=== PATIENT | male | born 1975 | race Caucasian/White ===

== ENCOUNTER 2017-03-17 15:28 | Emergency (ER) | payer SELFPAY ==
[2017-03-17 15:59] VITALS: BP 173/83
[2017-03-17] MEDS ORDERED: OXYCODONE-ACETAMINOPHEN 5-325 MG TABLET PO ONE (16:33)
--- NOTE | 2017-03-17 16:37 | ER Document Report ---
HPI - HPI Patient complains to provider of: Right wrist pain Onset: Other - 2 days Onset/Duration: Persistent Quality of pain: Achy Pain Level: 4 Context: Patient is right-hand dominant and complains of right wrist tenderness. Patient states that he does do a lot of heavy lifting at his job. Patient reports frequent right wrist movements at work. Patient denies any specific injury. Patient denies any fever Associated Symptoms: Other - right wrist pain Exacerbated by: Movement Relieved by: Denies Similar symptoms previously: No Recently seen / treated by doctor: No - ROS ROS below otherwise negative: Yes Systems Reviewed and Negative: Yes All other systems reviewed and negative - NEURO Neurology: DENIES: Weakness - RESPIRATORY Respiratory: DENIES: Trouble Breathing, Coughing - GASTROINTESTINAL Gastrointestinal: DENIES: Nausea, Patient vomiting - REPRODUCTIVE Reproductive: DENIES: : - MUSCULOSKELETAL Musculoskeletal: REPORTS: Extremity pain - r wrist - DERM Skin Color: Normal Skin Problems: None Past Medical History - General Information source: Patient - Social History Smoking Status: Never Smoker Frequency of alcohol use: None Drug Abuse: None Occupation: restaurant Lives with: Family Family History: CAD, DM Patient has suicidal ideation: No Patient has homicidal ideation: No - Past Medical History Cardiac Medical History: Reports: Hx Heart Attack - Says he stayed 24 hours in a hospital with diagnosis of stress on the heart, Hx Hypercholesterolemia, Hx Hypertension Renal/ Medical History: Denies: Hx Peritoneal Dialysis Psychiatric Medical History: Reports: Hx Anxiety Surgical Hx: Negative - Immunizations Hx Diphtheria, Pertussis, Tetanus Vaccination: Yes Vertical Provider Document - CONSTITUTIONAL Agree With Documented VS: Yes Exam Limitations: No Limitations General Appearance: WD/WN, No Apparent Distress - INFECTION CONTROL TRAVEL OUTSIDE OF THE [place] IN LAST 30 DAYS: No - HEENT HEENT: Atraumatic, Normocephalic - NECK Neck: Normal Inspection, Supple - RESPIRATORY Respiratory: Breath Sounds Normal, No Respiratory Distress, Chest Non-Tender O2 Sat by Pulse Oximetry: 95 - CARDIOVASCULAR Cardiovascular: Regular Rate, Regular Rhythm, No Murmur Pulses: Normal: Radial - MUSCULOSKELETAL/EXTREMETIES Musculoskeletal/Extremeties: MAEW, FROM, Tender - Right wrist tenderness over distal radial aspect of wrist., No Edema Notes: wrist tenderness increases with ulnar deviation of her wrist, flexion and extension. - NEURO Level of Consciousness: Awake, Alert, Appropriate Motor/Sensory: No Motor Deficit, No Sensory Deficit - DERM Integumentary: Warm, Dry, No Rash Course - Vital Signs Vital signs: Temp Pulse Resp BP Pulse Ox 98.2 F 91 20 173/83 H 95 03/17/17 15:56 03/17/17 15:56 03/17/17 15:56 03/17/17 15:56 03/17/17 15:56 Procedures - Immobilization Right Wrist Pre-Proc Neuro Vasc Exam: Normal Immobilizer type: Cock-up Performed by: PCT Post-Proc Neuro Vasc Exam: Normal Alignment checked and good: Yes Discharge - Discharge Clinical Impression: Tendonitis, Hx of essential hypertension Condition: Stable Disposition: HOME, SELF-CARE Instructions: Tendonitis ([facility]), Temporary Splint ([facility]), Anti-Inflammatory Medication ([facility]), Oral Narcotic Medication ([facility]) Additional Instructions: Return immediately for any new or worsening symptoms Followup with your primary care provider, call tomorrow to make a followup appointment Follow-up with orthopedic doctor for any continued pain or problems Your blood pressure was elevated today, recheck with your primary doctor this week to have it reevaluated. Prescriptions: Naproxen [Naprosyn 250 Nmg Tablet] 1 tab PO BID #14 tablet Oxycodone HCl/Acetaminophen [Percocet 5-325 mg Tablet] 1 tab PO ASDIR PRN #15 tablet PRN Reason: Forms: Elevated Blood Pressure, Restricted Release, Return to Work Referrals: [facility] [Provider Group] - Follow up as needed
== END 2017-03-17 17:00 | disposition home or self-care (01) ==
LOC: ER 15:28
DX: M77.9 Enthesopathy, unspecified (principal); M25.531 Pain in right wrist; I10 Essential (primary) hypertension
CPT/HCPCS: 99283; L3984

== ENCOUNTER 2017-05-17 21:23 | Emergency (ER) | payer SELFPAY ==
--- NOTE | 2017-05-17 22:43 | ER Document Report ---
ED Extremity Problem, Upper - General Chief Complaint: Shoulder Pain Stated Complaint: NECK/SHOULDER PAIN Time Seen by Provider: 05/17/17 22:24 Notes: The patient is a 42-year-old male, past medical history hypertension, presents with 5 days of left shoulder pain after he fell off 2 steps of a ladder and bumped his shoulder against the wall. He took Naprosyn with some relief of his symptoms. He is having worsening pain when he extends his shoulder, but denies numbness, tingling, neck pain, open wounds, chest pain, shortness of breath, nausea, vomiting or any other injuries. TRAVEL OUTSIDE OF THE [place] IN LAST 30 DAYS: No - Related Data Allergies/Adverse Reactions: No Known Allergies Allergy (Verified 05/17/17 22:00) Past Medical History - General Information source: Patient - Social History Smoking Status: Unknown if Ever Smoked Family History: CAD, DM Patient has suicidal ideation: No Patient has homicidal ideation: No - Past Medical History Cardiac Medical History: Reports: Hx Heart Attack - Says he stayed 24 hours in a hospital with diagnosis of stress on the heart, Hx Hypercholesterolemia, Hx Hypertension Renal/ Medical History: Denies: Hx Peritoneal Dialysis Psychiatric Medical History: Reports: Hx Anxiety - Immunizations Hx Diphtheria, Pertussis, Tetanus Vaccination: Yes Review of Systems - Review of Systems Notes: REVIEW OF SYSTEMS: CONSTITUTIONAL: -fevers, -chills EENT: -eye pain, -difficulty swallowing, -nasal congestion CARDIOVASCULAR:-chest pain, -syncope. RESPIRATORY: -cough, -SOB GASTROINTESTINAL: -abdominal pain, - nausea, -vomiting, -diarrhea GENITOURINARY: -dysuria, -hematuria MUSCULOSKELETAL: +left shoulder pain, -back pain, -neck pain SKIN: -rash or skin lesions. HEMATOLOGIC: -easy bruising or bleeding. LYMPHATIC: -swollen, enlarged glands. NEUROLOGICAL: -altered mental status or loss of consciousness, -headache, - neurologic symptoms PSYCHIATRIC: -anxiety, -depression. ALL OTHER SYSTEMS REVIEWED AND NEGATIVE. Physical Exam - Vital signs Vitals: Temp Pulse Resp BP Pulse Ox 98.5 F 86 16 189/96 H 97 05/17/17 21:58 05/17/17 21:58 05/17/17 21:58 05/17/17 21:58 05/17/17 21:58 - Notes Notes: PHYSICAL EXAMINATION: GENERAL: Well-appearing, well-nourished and in no acute distress. HEAD: Atraumatic, normocephalic. EYES: Pupils equal round and reactive to light, extraocular movements intact, sclera anicteric, conjunctiva are normal. ENT: nares patent, oropharynx clear without exudates. Moist mucous membranes. NECK: Normal range of motion, supple without lymphadenopathy LUNGS: Breath sounds clear to auscultation bilaterally and equal. No wheezes rales or rhonchi. HEART: Regular rate and rhythm without murmurs ABDOMEN: Soft, nontender, normoactive bowel sounds. No guarding, no rebound. No masses appreciated. EXTREMITIES: Left shoulder tenderness, painful left shoulder extension, no pitting or edema. No cyanosis. Strong distal pulses. NEUROLOGICAL: Cranial nerves grossly intact. Normal speech, normal gait. Normal sensory and motor exams. PSYCH: Normal mood, normal affect. SKIN: Warm, Dry, normal turgor, no rashes or lesions noted. Course - Re-evaluation Re-evalutation: No evidence of fractures or dislocations on left shoulder x-ray. Provided patient with instructions about contusion management and he understands. He will have his blood pressure rechecked by his primary care physician this week. - Vital Signs Vital signs: Temp Pulse Resp BP Pulse Ox 98.5 F 86 16 189/96 H 97 05/17/17 21:58 05/17/17 21:58 05/17/17 21:58 05/17/17 21:58 05/17/17 21:58 - Diagnostic Test Radiology reviewed: Image reviewed, Reports reviewed Radiology results interpreted by me: Left shoulder x-ray: NAD Discharge - Discharge Clinical Impression: Left shoulder pain Qualifiers: Chronicity: acute Qualified Code(s): M25.512 - Pain in left shoulder Condition: Stable Disposition: HOME, SELF-CARE Additional Instructions: Contusion Your injury has resulted in a contusion -- a crushing of the deep tissues. No injury to important structures was detected during the physician's exam. Contusions vary in the amount of pain they cause, and in the length of time required for healing. Typically, the area will become bruised, and will remain painful to touch for two or three weeks. However, most patients are back to working and playing within a few days. After the initial period of rest and cold-packs, your symptoms (together with the doctor's recommendations) will determine how rapidly you can get back to full activity. Usually this means "do what feels okay, but don't do things that hurt." If re-examination was recommended, it's important to follow up as instructed. Call the doctor or return any time if pain increases, if swelling becomes severe, if you develop numbness or weakness in an injured extremity, or if any other alarming symptoms occur. Forms: Elevated Blood Pressure
--- NOTE | 2017-05-17 23:02 | RADIOLOGY REPORT (SQ) ---
EXAM DESCRIPTION: SHOULDER LEFT 2 OR MORE VIEWS COMPLETED DATE/TIME: 05/17/2017 10:50 pm REASON FOR STUDY: left shoulder pain s/p fall COMPARISON: None. NUMBER OF VIEWS: Three views. TECHNIQUE: Internal rotation, external rotation, and Y view images acquired of the left shoulder. LIMITATIONS: None. FINDINGS: MINERALIZATION: Normal. BONES: No acute fracture or dislocation. No worrisome bone lesions. JOINTS: No dislocation. VISUALIZED LUNGS AND RIBS: No pneumothorax. No rib fracture. SOFT TISSUES: No radiopaque foreign body. OTHER: No other significant finding. IMPRESSION: NO RADIOGRAPHIC EVIDENCE OF ACUTE INJURY. TECHNICAL DOCUMENTATION: JOB ID: [id number] [employer]- All Rights Reserved
[2017-05-17 23:15] VITALS: BP 179/92
== END 2017-05-17 23:10 | disposition home or self-care (01) ==
LOC: ER 21:23
DX: M25.512 Pain in left shoulder (principal); W11.XXXA Fall on and from ladder, initial encounter; Y93.89 Activity, other specified; I10 Essential (primary) hypertension; I25.2 Old myocardial infarction
CPT/HCPCS: 99283

== ENCOUNTER 2017-07-11 17:44 | Emergency (ER) | payer SELFPAY ==
[2017-07-11] MEDS ORDERED: IBUPROFEN 800 MG TABLET PO ONE (18:22)
--- NOTE | 2017-07-11 18:22 | ER Document Report ---
HPI - HPI Patient complains to provider of: Body aches, diarrhea, head congestion, sore throat, headache Onset: Other - Saturday afternoon Onset/Duration: Gradual Quality of pain: Pressure Pain Level: 3 Context: 43-year-old non-smoking hypertensive diabetic male complaining of headache, generalized body aches, sore throat, head congestion, ear fullness since Saturday when he had to leave work. He missed work on Saturday and . He also has some diarrhea. No chest pain shortness of breath or abdominal pain. No rash. No fever. Associated Symptoms: None Exacerbated by: Denies Relieved by: Denies Similar symptoms previously: No Recently seen / treated by doctor: No - ROS ROS below otherwise negative: Yes Systems Reviewed and Negative: Yes All other systems reviewed and negative - REPRODUCTIVE Reproductive: DENIES: : - DERM Skin Color: Normal Past Medical History - General Information source: Patient - Social History Smoking Status: Never Smoker Frequency of alcohol use: None Drug Abuse: None Lives with: Spouse/Significant other Family History: CAD, DM - Past Medical History Cardiac Medical History: Reports: Hx Heart Attack - Says he stayed 24 hours in a hospital with diagnosis of stress on the heart, Hx Hypercholesterolemia, Hx Hypertension Renal/ Medical History: Denies: Hx Peritoneal Dialysis Psychiatric Medical History: Reports: Hx Anxiety Surgical Hx: Negative - Immunizations Hx Diphtheria, Pertussis, Tetanus Vaccination: Yes Vertical Provider Document - CONSTITUTIONAL Agree With Documented VS: Yes Exam Limitations: No Limitations General Appearance: No Apparent Distress Notes: obese - INFECTION CONTROL TRAVEL OUTSIDE OF THE [place] IN LAST 30 DAYS: No - HEENT HEENT: Normocephalic, Pharyngeal Erythema. negative: Tympanic Membrane Red, Tympanic Membrane Bulging - NECK Neck: Supple. negative: Lymphadenopathy-Left, Lymphadenopathy-Right - RESPIRATORY Respiratory: Breath Sounds Normal, No Respiratory Distress O2 Sat by Pulse Oximetry: 97 - CARDIOVASCULAR Cardiovascular: Regular Rate, Regular Rhythm - GI/ABDOMEN Gastrointestinal: Abdomen Soft, Abdomen Non-Tender - MUSCULOSKELETAL/EXTREMETIES Musculoskeletal/Extremeties: CARLOS SINGH - NEURO Level of Consciousness: Awake, Alert, Appropriate - DERM Integumentary: Warm, Dry, No Rash Course - Vital Signs Vital signs: Temp Pulse Resp BP Pulse Ox 99.2 F 103 H 18 156/105 H 97 07/11/17 17:48 07/11/17 17:48 07/11/17 17:48 07/11/17 17:48 07/11/17 17:48 Discharge - Discharge Clinical Impression: upper respiratory infetion Headache Qualifiers: Headache type: unspecified Headache chronicity pattern: acute headache Intractability: not intractable Qualified Code(s): R51 - Headache Condition: Good Disposition: HOME, SELF-CARE Instructions: Acetaminophen, Diarrhea, Nonspecific ([facility]), Headache ([facility]), Use of [id number]-[id number] Ibuprofen ([facility]), Upper Respiratory Illness ([facility]) Additional Instructions: to er if worse plenty of fluids rest cool mist humidifier over the counter cold medicine of your choice see your provider for recheck in [place] Please complete the patient satisfaction survey if you get one, and return it.. If you do not receive a survey, then you can go to the [facility] website, [email or web address] and place your comments about your very good care. Thank you very much. It was a pleasure being your medical provider today. Forms: Return to Work
[2017-07-11] MEDS ORDERED: CLONIDINE HCL 0.1 MG TABLET PO ONE (18:48)
[2017-07-11 20:06] VITALS: BP 148/94
== END 2017-07-11 19:20 | disposition home or self-care (01) ==
LOC: ER 17:44
DX: J06.9 Acute upper respiratory infection, unspecified (principal); R51 Headache; M79.1 Myalgia; R19.7 Diarrhea, unspecified; R09.89 Other specified symptoms and signs involving the circulatory and respiratory systems; J02.9 Acute pharyngitis, unspecified; E11.9 Type 2 diabetes mellitus without complications; I10 Essential (primary) hypertension; I25.2 Old myocardial infarction
CPT/HCPCS: 99283

== ENCOUNTER 2018-05-05 23:26 | Emergency (ER) | payer SELFPAY ==
[2018-05-06] MEDS ORDERED: LIDOCAINE 5% (700 MG) TRANSDERMAL ADH..PATCH TP ONE (01:20)
[2018-05-06] MEDS ORDERED: METHOCARBAMOL 500 MG TABLET PO ONE (01:20)
[2018-05-06] MEDS ORDERED: NAPROXEN 250 MG TABLET PO ONE (01:20)
--- NOTE | 2018-05-06 01:22 | ER Document Report ---
ED Neck/Back Problem - General Chief Complaint: Neck Pain < 24hrs old Stated Complaint: NECK PAIN Time Seen by Provider: 05/06/18 01:09 Notes: The patient is a 43-year-old male, past medical history hypertension (not taking his BP meds), presents with 1 day of neck pain radiating into the top of his head, worse on the right side. He does not remember an injury, but he has had this in the past. He denies fevers, numbness, tingling, blurry vision, chest pain or shortness of breath. TRAVEL OUTSIDE OF THE [place] IN LAST 30 DAYS: No - Related Data Allergies/Adverse Reactions: amoxicillin Allergy (Verified 05/05/18 23:31) Past Medical History - General Information source: Patient - Social History Smoking Status: Unknown if Ever Smoked Family History: CAD, DM Patient has suicidal ideation: No Patient has homicidal ideation: No - Past Medical History Cardiac Medical History: Reports: Hx Heart Attack - Says he stayed 24 hours in a hospital with diagnosis of stress on the heart, Hx Hypercholesterolemia, Hx Hypertension Renal/ Medical History: Denies: Hx Peritoneal Dialysis Psychiatric Medical History: Reports: Hx Anxiety - Immunizations Hx Diphtheria, Pertussis, Tetanus Vaccination: Yes Review of Systems - Review of Systems Notes: REVIEW OF SYSTEMS: CONSTITUTIONAL: -fevers, -chills EENT: -eye pain, -difficulty swallowing, -nasal congestion CARDIOVASCULAR: -chest pain, -syncope. RESPIRATORY: -cough, -SOB GASTROINTESTINAL: -abdominal pain, -nausea, -vomiting, -diarrhea GENITOURINARY: -dysuria, -hematuria MUSCULOSKELETAL: -back pain, +neck pain SKIN: -rash or skin lesions. HEMATOLOGIC: -easy bruising or bleeding. LYMPHATIC: -swollen, enlarged glands. NEUROLOGICAL: -altered mental status or loss of consciousness, +headache, - neurologic symptoms PSYCHIATRIC: -anxiety, -depression. ALL OTHER SYSTEMS REVIEWED AND NEGATIVE. Physical Exam - Vital signs Vitals: Temp Pulse Resp BP Pulse Ox 98.6 F 92 16 192/89 H 97 05/05/18 23:59 05/05/18 23:59 05/05/18 23:59 05/05/18 23:59 05/05/18 23:59 - Notes Notes: PHYSICAL EXAMINATION: GENERAL: Well-appearing, well-nourished and in no acute distress. HEAD: Atraumatic, normocephalic. EYES: Pupils equal round and reactive to light, extraocular movements intact, sclera anicteric, conjunctiva are normal. ENT: nares patent, oropharynx clear without exudates. Moist mucous membranes. NECK: Normal range of motion, supple without lymphadenopathy, mild tenderness and spasming over right paracervical muscles, no midline tenderness. LUNGS: Breath sounds clear to auscultation bilaterally and equal. No wheezes rales or rhonchi. HEART: Regular rate and rhythm without murmurs ABDOMEN: Soft, nontender, normoactive bowel sounds. No guarding, no rebound. No masses appreciated. EXTREMITIES: Normal range of motion, no pitting or edema. No cyanosis. NEUROLOGICAL: Cranial nerves grossly intact. Normal speech, normal gait. Normal sensory and motor exams. PSYCH: Normal mood, normal affect. SKIN: Warm, Dry, normal turgor, no rashes or lesions noted. Course - Re-evaluation Re-evalutation: Patient symptoms consistent with neck strain and occipital neuralgia. No signs of meningitis, CVA, SAH or ICH at this time. Instructed him about treatment with anti-inflammatories, muscle relaxers and Lidoderm patches. Also provided him with a refill of his blood pressure medications and [facility] and treatment. - Vital Signs Vital signs: Temp Pulse Resp BP Pulse Ox 98.6 F 92 16 192/89 H 97 05/05/18 23:59 05/05/18 23:59 05/05/18 23:59 05/05/18 23:59 05/05/18 23:59 Discharge - Discharge Clinical Impression: Neck strain Qualifiers: Encounter type: initial encounter Qualified Code(s): S16.1XXA - Strain of muscle, fascia and tendon at neck level, initial encounter Headache Qualifiers: Headache type: unspecified Headache chronicity pattern: unspecified pattern Intractability: not intractable Qualified Code(s): R51 - Headache Condition: Stable Disposition: HOME, SELF-CARE Additional Instructions: Neck Injury (Cervical Strain) You have a neck strain. This is an injury to the muscles and ligaments in the neck. There is no evidence of a fracture of the neck bones. Also, no injury to the spinal cord or nerve roots was detected. Usually, stiffness and pain INCREASE for the first 24-48 hours after the injury. The pain will gradually resolve and the neck will become more mobile. Most patients are back at work or school within a few days. Typically, complete healing takes about two or three weeks. The usual initial treatment is rest and cold packs. A neck collar may be placed to keep the muscles of the neck at rest. Antiinflammatory and muscle relaxing medication are often used to reduce the spasm and irritation. You should call the doctor, or go to the hospital, if you develop numbness or weakness in any extremity, problems with your bladder or bowel, or pain radiating down the arms. Prescriptions: Lidocaine [Lidoderm 5% (700 mg) Transdermal Patch] 1 patch TP DAILY #10 adh..patch Lisinopril/Hydrochlorothiazide [Lisinopril-Hctz 20-12.5 mg Tab] 1 each PO DAILY #30 tablet Methocarbamol [Robaxin 500 mg Tablet] 500 mg PO Q4H PRN #15 tablet PRN Reason: Naproxen [Naprosyn 250 mg Tablet] 500 mg PO Q12H PRN #14 tablet PRN Reason: Forms: Elevated Blood Pressure, Return to Work Referrals: [facility] [Outside] - Follow up as needed
[2018-05-06 01:56] VITALS: BP 192/89
== END 2018-05-06 01:46 | disposition home or self-care (01) ==
LOC: ER 23:26
DX: S16.1XXA Strain of muscle, fascia and tendon at neck level, initial encounter (principal); M54.2 Cervicalgia; X58.XXXA Exposure to other specified factors, initial encounter; I10 Essential (primary) hypertension; T46.4X6A Underdosing of angiotensin-converting-enzyme inhibitors, initial encounter; Z91.14 Patient's other noncompliance with medication regimen; R51 Headache; Z88.0 Allergy status to penicillin
CPT/HCPCS: 99283

== ENCOUNTER 2018-07-04 15:29 | Emergency (ER) | payer OTHER ==
[2018-07-04] MEDS ORDERED: OXYCODONE-ACETAMINOPHEN 5-325 MG TABLET PO ONE (16:33)
--- NOTE | 2018-07-04 16:34 | ER Document Report ---
ED Wound - General Chief Complaint: Laceration Stated Complaint: HAND LACERATION Time Seen by Provider: 07/04/18 16:26 Mode of Arrival: Ambulatory Information source: Patient Notes: Patient is a 43-year-old male who presents with chief complaint of laceration. Patient reports that he cut it on a broken light bulb at work. There is no active bleeding at this time. TRAVEL OUTSIDE OF THE [place] IN LAST 30 DAYS: No - Related Data Allergies/Adverse Reactions: amoxicillin Allergy (Verified 07/04/18 15:32) Past Medical History - General Information source: Patient - Social History Smoking Status: Never Smoker Family History: CAD, DM - Past Medical History Cardiac Medical History: Reports: Hx Heart Attack - Says he stayed 24 hours in a hospital with diagnosis of stress on the heart, Hx Hypercholesterolemia, Hx Hypertension Renal/ Medical History: Denies: Hx Peritoneal Dialysis Psychiatric Medical History: Reports: Hx Anxiety - Immunizations Hx Diphtheria, Pertussis, Tetanus Vaccination: Yes Review of Systems - Review of Systems Skin: See HPI -: Yes All other systems reviewed and negative Physical Exam - Vital signs Vitals: Temp Pulse Resp BP Pulse Ox 98.3 F 114 H 20 188/112 H 97 07/04/18 15:45 07/04/18 15:45 07/04/18 15:45 07/04/18 15:45 07/04/18 15:45 - Notes Notes: PHYSICAL EXAMINATION: GENERAL: Well-appearing, well-nourished and in no acute distress. HEAD: Atraumatic, normocephalic. EYES: Pupils equal round extraocular movements intact, conjunctiva are normal. ENT: Nares patent NECK: Normal range of motion LUNGS: No respiratory distress Musculoskeletal: Normal range of motion NEUROLOGICAL: Normal speech, normal gait. PSYCH: Normal mood, normal affect. SKIN: Warm, Dry, normal turgor, no rashes or lesions noted. 2 cm laceration noted to the palm of the right hand. Course - Re-evaluation Re-evalutation: X-ray of the hand is negative for any foreign bodies. Hand was irrigated well with normal saline, laceration repaired, see procedure note. Patient tolerated well. - Vital Signs Vital signs: Temp Pulse Resp BP Pulse Ox 97.5 F 94 18 166/104 H 95 07/04/18 17:48 07/04/18 18:12 07/04/18 18:12 07/04/18 18:12 07/04/18 17:48 Procedures - Laceration/Wound Repair Right hand Wound length (cm): 2 Wound's Depth, Shape: Superficial Laceration pre-procedure: Sterile PPE donned Anesthetic type: 1% Lidocaine Wound explored: Clean Wound Repaired With: Sutures Suture Size/Type: 4:0 Number of Sutures: 4 Post-procedure NV exam normal: Yes Complications: No Discharge - Discharge Clinical Impression: Laceration Condition: Stable Disposition: HOME, SELF-CARE Additional Instructions: Laceration Care Your laceration has been sutured to keep the skin edges aligned during healing. The time of suture removal depends on the nature and location of your cut. Please follow the care instructions the doctor has outlined for you and return for further care, according to the schedule you've been given. Keep the wound and dressing clean. Unless you were told otherwise, you may shower daily, blotting the wound dry with a clean, unused towel. At other times, If the dressing gets wet or blood soaked, remove it and blot the wound dry, then reapply a new dressing. Unless you were instructed otherwise, dressings should be changed at least daily. If any signs of infection occur (swelling, redness, increasing tenderness, red streaks, tender lumps in the armpit or groin above the laceration, or fever) , see the doctor immediately. Please return to the emergency department or your primary care provider in 10-12 days for suture removal. Please return earlier if you develop any signs of infection such as increased redness, swelling, foul-smelling drainage or fever. Prescriptions: Doxycycline Hyclate 100 mg PO BID #14 capsule
--- NOTE | 2018-07-04 17:20 | RADIOLOGY REPORT (SQ) ---
EXAM DESCRIPTION: HAND RIGHT 3 VIEWS COMPLETED DATE/TIME: 07/04/2018 5:03 pm REASON FOR STUDY: r/o FB, laceration with broken glass COMPARISON: None. EXAM PARAMETERS: NUMBER OF VIEWS: Three views. TECHNIQUE: AP, lateral and oblique radiographic images acquired of the right hand. LIMITATIONS: None. FINDINGS: MINERALIZATION: Normal. BONES: No acute fracture or dislocation. No worrisome bone lesions. JOINTS: No effusion. SOFT TISSUES: No significant soft tissue swelling. No radiopaque foreign body. OTHER: No other significant finding. IMPRESSION: NO FRACTURE.No radiopaque foreign body. TECHNICAL DOCUMENTATION: JOB ID: [id number] [email or web address]- All Rights Reserved Reading location - IP/workstation name: [email or web address]
[2018-07-04] MEDS ORDERED: DIPH/PERTUSS(ACELL)/TETANUS VAC/PF 0.5 ML SYR (>=10YO) IM ONE (17:39)
[2018-07-04 18:16] VITALS: BP 166/104
== END 2018-07-04 18:16 | disposition home or self-care (01) ==
LOC: ER 15:29
PROC: 0HQFXZZ Repair Right Hand Skin, External Approach (ICD-10-PCS; principal; 2018-07-04)
DX: S61.411A Laceration without foreign body of right hand, initial encounter (principal); W25.XXXA Contact with sharp glass, initial encounter; E78.00 Pure hypercholesterolemia, unspecified; I10 Essential (primary) hypertension; I25.2 Old myocardial infarction; Z88.0 Allergy status to penicillin; Z23 Encounter for immunization
CPT/HCPCS: 90471; 90715; 99283

== ENCOUNTER 2019-04-13 02:54 | Observation (INO) | payer SELFPAY ==
[2019-04-13] MEDS ORDERED: ASPIRIN 81 MG TABLET, CHEWABLE PO ONE (03:02)
--- NOTE | 2019-04-13 03:42 | ER Document Report ---
ED General - General Chief Complaint: Chest Pain Stated Complaint: CHEST PAIN Time Seen by Provider: 04/13/19 03:42 Notes: Patient is a 44-year-old male with history of diabetes mellitus and hypertension that presents to the emergency department for chief complaint of chest pain. Patient states he does have the pain on and off all day for most of the day yesterday, then he got worse around 2 AM this morning, described as a heaviness and pain in his left chest that radiated a little bit towards the back, he had associated shortness of breath and nausea. Denies having any vomiting, or diaphoresis. The pain seems to be easing up, he currently rates it as a 2 out of 10, but it is still present. He denies prior history of coronary disease, he believes he had a stress test a while back but does not remember all the results but he thinks are negative. He does smoke cigarettes on a daily basis as well. Past Medical History: Diabetes in office, hypertension Past Surgical History: Denies surgical history Social History: Admits to smoking cigarettes on a daily basis, denies alcohol or drug use. Family History: Reviewed and noncontributory for presenting illness Allergies: Reviewed, see documented allergy list. REVIEW OF SYSTEMS: Other than noted above, the 12 point review of systems was reviewed with the patient and were negative, all pertinent findings are included in the HPI. PHYSICAL EXAMINATION: Vital signs reviewed, nursing noted reviewed. GENERAL: Well-appearing, well-nourished and in no acute distress. HEAD: Atraumatic, normocephalic. EYES: Eyes appear normal, extraocular movements intact, sclera anicteric, conjunctiva are normal. ENT: nares patent, oropharynx clear without exudates. Moist mucous membranes. NECK: Normal range of motion, supple without lymphadenopathy LUNGS: Breath sounds clear to auscultation bilaterally and equal. No wheezes rales or rhonchi. HEART: Regular rate and rhythm without murmurs ABDOMEN: Soft, nontender, normoactive bowel sounds. No rebound, guarding, or rigidity. No masses appreciated. EXTREMITIES: Nontender, good range of motion, no pitting or edema. NEUROLOGICAL: No focal neurological deficits. Moves all extremities spontaneously Motor and sensory grossly intact on exam. PSYCH: Normal mood, normal affect. SKIN: Warm, Dry, normal turgor, no rashes or lesions noted on exposed skin TRAVEL OUTSIDE OF THE [place] IN LAST 30 DAYS: No - Related Data Allergies/Adverse Reactions: amoxicillin Allergy (Verified 07/04/18 15:32) Past Medical History - Social History Smoking Status: Current Every Day Smoker Family History: CAD, DM - Past Medical History Cardiac Medical History: Reports: Hx Heart Attack - Says he stayed 24 hours in a hospital with diagnosis of stress on the heart, Hx Hypercholesterolemia, Hx Hypertension Renal/ Medical History: Denies: Hx Peritoneal Dialysis Psychiatric Medical History: Reports: Hx Anxiety - Immunizations Hx Diphtheria, Pertussis, Tetanus Vaccination: Yes Physical Exam - Vital signs Vitals: Temp Pulse Resp BP Pulse Ox 97.7 F 86 21 H 218/100 H 96 04/13/19 02:55 04/13/19 02:55 04/13/19 02:55 04/13/19 02:55 04/13/19 02:55 Course - Re-evaluation Re-evalutation: Patient seen and examined vital signs reviewed. Laboratory data and imaging were ordered as appropriate for the patient's presenting symptoms and complaint, with consideration of any critical or life threatening conditions that may be associated with their obtained history and exam as noted above. Patient was treated with aspirin, and given a dose of sublingual nitroglycerin Results were reviewed when available and demonstrated negative troponin, negative chest x-ray, blood work otherwise unremarkable The patient was re-evaluated and was stable and improved after given the nitroglycerin Evaluation was most consistent with chest pain, uncertain etiology, however given the patient's risk factors, and a heart score of 4, I recommend to the patient that they be observed in the hospital for serial troponin testing, possible stress testing which the patient was agreeable to. Results were discussed with the patient at this point after careful consideration I feel that that patient should be admitted to the hospital. This was discussed with the patient that it is in the best interest for their care to be admitted for further evaluation and management. Patient agreed with this plan of care. A call was placed to the admitting physician, Dr. Henderson who graciously accepted the patient onto their service. *Note is created using voice recognition software and may contain spelling, syntax or grammatical errors. Laboratory 04/13/19 04/13/19 04/13/19 04:02 04:02 04:02 WBC 8.3 RBC 4.96 Hgb 14.8 Hct 42.0 MCV 85 MCH 29.8 MCHC 35.2 RDW 13.6 Plt Count 151 Seg Neutrophils % 59.8 Lymphocytes % 28.9 Monocytes % 8.8 Eosinophils % 1.8 Basophils % 0.7 Absolute Neutrophils 5.0 Absolute Lymphocytes 2.4 Absolute Monocytes 0.7 Absolute Eosinophils 0.1 Absolute Basophils 0.1 Sodium 140.4 Potassium 3.9 Chloride 108 H Carbon Dioxide 23 Anion Gap 9 BUN 20 Creatinine 0.85 Est GFR ( Amer) > 60 Est GFR (Non-Af Amer) > 60 Glucose 108 Calcium 9.4 Total Bilirubin 0.5 Direct Bilirubin 0.4 Neonat Total Bilirubin Not Reportable Neonat Direct Bilirubin Not Reportable Neonat Indirect Bili Not Reportable AST 23 ALT 23 Alkaline Phosphatase 77 Troponin I < 0.012 Total Protein 7.8 Albumin 4.6 Chest X-Ray 04/13/19 03:03 IMPRESSION: Negative chest copyright 2011 [employer]- All Rights Reserved - Vital Signs Vital signs: Temp Pulse Resp BP Pulse Ox 97.7 F 84 14 165/102 H 97 04/13/19 02:55 04/13/19 03:50 04/13/19 04:01 04/13/19 04:01 04/13/19 04:07 - Laboratory Result Diagrams: 04/13/19 04:02 04/13/19 04:02 Laboratory results interpreted by me: 04/13/19 04:02 Chloride 108 H - EKG Interpretation by Me Additional EKG results interpreted by me: EKG demonstrates sinus rhythm with a ventricular rate of 87 bpm, normal axis, QTC 501 ms, there is slight ST depressions noted in leads II, aVF, and V5 and V6, EKG compared with prior from 06/22/2016, and does appear to have changes. Discharge - Discharge Clinical Impression: Chest pain Qualifiers: Chest pain type: unspecified Qualified Code(s): R07.9 - Chest pain, unspecified Hypertension Qualifiers: Hypertension type: unspecified Qualified Code(s): I10 - Essential (primary) hypertension Condition: Stable Disposition: ADMITTED OBSERVATION Admitting Provider: Beatriz (Hospitalist) Unit Admitted: Telemetry
[2019-04-13] MEDS ORDERED: NITROGLYCERIN 0.4 MG/TAB 25 TAB/BOTTLE SL PRN ×2 (04:07→05:59)
[2019-04-13 04:18] LABS: ABSOLUTE BASOPHILS # (AUTO) 0.1 10^3/uL (0.0-0.2); ABSOLUTE EOSINOPHILS # (AUTO) 0.1 10^3/uL (0.0-0.6); ABSOLUTE LYMPHOCYTES (AUTO) 2.4 10^3/uL (0.5-4.7); ABSOLUTE MONOCYTES (AUTO) 0.7 10^3/uL (0.1-1.4); BASOPHILS % (AUTO) 0.7 % (0-2); EOSINOPHILS % (AUTO) 1.8 % (0-6); HEMOGLOBIN 14.8 g/dL (13.5-17.0); LYMPHOCYTES % (AUTO) 28.9 % (13-45); MEAN CORPUSCULAR HEMOGLOBIN 29.8 pg (27.0-33.4); MEAN CORPUSCULAR HGB CONC 35.2 g/dL (32.0-36.0); MEAN CORPUSCULAR VOLUME 85 fl (80-97); MONOCYTES % (AUTO) 8.8 % (3-13); PLATELET COUNT 151 10^3/uL (150-450); RED BLOOD COUNT 4.96 10^6/uL (4.35-5.55); RED CELL DISTRIBUTION WIDTH 13.6 % (11.5-14.0); SEGMENTED NEUTROPHILS % (AUTO) 59.8 % (42-78); TOTAL CELLS COUNTED % (AUTO) 100 %; WHITE BLOOD COUNT 8.3 10^3/uL (4.0-10.5)
--- NOTE | 2019-04-13 04:19 | RADIOLOGY REPORT (SQ) ---
EXAM DESCRIPTION: XR CHEST 1 VIEW COMPLETED DATE/TME: 04/13/2019 03:03 CLINICAL HISTORY: 44 years, Male, CP; HTN COMPARISON: 01/15/2015 chest NUMBER OF VIEWS: 1 TECHNIQUE: Portable chest LIMITATIONS: None. FINDINGS: Heart size is normal. Lungs are clear. No pneumothorax IMPRESSION: Negative chest copyright 2010 [employer]- All Rights Reserved
[2019-04-13 04:36] LABS: ALANINE AMINOTRANSFERASE 23 U/L (21-72); ALBUMIN 4.6 g/dL (3.5-5.0); ALKALINE PHOSPHATASE 77 U/L (38-126); ANION GAP 9 (5-19); ASPARTATE AMINO TRANSFERASE 23 U/L (17-59); BILIRUBIN,DIRECT 0.4 mg/dL (0.0-0.4); BILIRUBIN,TOTAL 0.5 mg/dL (0.2-1.3); BLOOD UREA NITROGEN 20 mg/dL (7-20); CALCIUM 9.4 mg/dL (8.4-10.2); CARBON DIOXIDE 23 mmol/L (22-30); CHLORIDE 108 mmol/L (98-107); GLUCOSE 108 mg/dL (75-110); POTASSIUM 3.9 mmol/L (3.6-5.0); SODIUM 140.4 mmol/L (137-145); TOTAL PROTEIN 7.8 g/dL (6.3-8.2)
[2019-04-13] MEDS ORDERED: TEMAZEPAM 15 MG CAPSULE PO PRN (05:55)
[2019-04-13] MEDS ORDERED: MAG HYDROX/AL HYDROX/SIMETH SUSP 30 ML UDCUP PO PRN (05:55)
[2019-04-13] MEDS ORDERED: ONDANSETRON HCL INJ/PF 4 MG/2 ML SDV IV PRN (05:55)
[2019-04-13] MEDS ORDERED: MAGNESIUM HYDROXIDE SUSP 30 ML UDCUP PO PRN (05:55)
[2019-04-13] MEDS ORDERED: ACETAMINOPHEN 325 MG TABLET PO PRN (05:59)
[2019-04-13] MEDS ORDERED: INSULIN REG, HUMAN 100 UNIT/ML 3 ML VIAL (PYX) SUBCUT PRN (05:59)
[2019-04-13] MEDS ORDERED: LEVALBUTEROL HCL NEB 0.63 MG/3 ML AMPUL NEB PRN (05:59)
[2019-04-13] MEDS ORDERED: MORPHINE SULFATE 10 MG/ML INJ IV PRN ×4 (05:59→07:08)
[2019-04-13] MEDS ORDERED: NICOTINE 21 MG/24 HR PATCH.TD24 TD PRN (05:59)
[2019-04-13] MEDS ORDERED: DEXTROSE 50%-WATER 25 GM/50 ML DISP.SYRIN IV PRN ×2 (06:00)
[2019-04-13] MEDS ORDERED: DEXTROSE 40% GEL 15 GM TUBE PO PRN ×2 (06:00)
[2019-04-13] MEDS ORDERED: GLUCAGON,HUMAN RECOMB 1 MG INJ IM PRN (06:00)
--- NOTE | 2019-04-13 06:31 | ADVANCED CARE ---
- Diagnosis (1) Chest pain Diagnosis Current: Yes (2) HTN (hypertension) Diagnosis Current: Yes (3) Diabetes mellitus type 2 in obese Diagnosis Current: Yes (4) Tobacco use disorder, severe, dependence Diagnosis Current: Yes Attendance: Patient, Meliza Longo and myself Resuscitation Status: Full Code Discussion: Patient has determined that he would like to remain a full code for resuscitation status throughout his hospital course in the event of a cardiac or respiratory arrest. Additionally he has named Meliza Longo as his designated surrogate medical decision-maker. Care Planning Goals: 1. Patient will be a full CODE STATUS during this hospitalization. 2. Meliza Longo is the patient's designated surrogate medical decision maker. Document(s) Completed: The following information will be entered into the patient's permanent medical record as well as his current medical record and orders via EMR entry: 1. Patient will be a full CODE STATUS during this hospitalization. 2. Meliza Longo is the patient's designated surrogate medical decision maker. Time Spent: 5 minutes
--- NOTE | 2019-04-13 06:45 | PDOC H&P ---
History of Present Illness Admission Date/PCP: 04/13/2019 05:23 No local PCP Patient complains of: Chest pain History of Present Illness: ROMMEL LONGO JR is a 44 year old male who presents to the emergency room with a 2-day history of chest pain. He admits progressively worsening inter mittent episodes of chest pain for the last 2 days. The chest pain episodes prior to the episode which brought him to the hospital had lasted only for a few minutes and been of mild to moderate intensity with rapid spontaneous resolution. He describes the pain, which started abruptly and woke him from sleep at approximately 2 AM and subsequently caused him to come to the hospital, as a constant, severe, crushing pressure in the substernal and left parasternal chest, radiating straight through to his back and lasting for more than an hour before finally resolving after treatment in the emergency room. He admits that his chest pain has accompanied by moderate dyspnea, a severe headache, a severe cough and posttussive nausea. He admits prior similar episodes on a couple of occasions in the remote past. He denies identification of any aggravating or ameliorating factors for his chest pain. In the emergency room his EKG showed no acute changes consistent with myocardial ischemia or injury and initial cardiac enzymes were in the normal range. Patient was subsequently admitted to observation status in the hospital for further evaluation and treatment. Past Medical History Cardiac Medical History: Reports: Coronary Artery Disease, Myocardial Infarction - Says he stayed 24 hours in a hospital with diagnosis of stress on the heart, Hyperlipidema, Hypertension Denies: Atrial Fibrillation, Congestive Heart Failure, DVT, Pulmonary Embolism Pulmonary Medical History: Denies: Asthma, Chronic Obstructive Pulmonary Disease (COPD), Respiratory Failure, Sleep Apnea EENT Medical History: Denies: Cataracts, Ears - Hearing aids Neurological Medical History: Denies: Hemorrhagic CVA, Ischemic CVA, Multiple Sclerosis, Seizures Endocrine Medical History: Reports: Diabetes Mellitus Type 2, Obesity Denies: Diabetes Mellitus Type 1, Hyperthyroidism, Hypothyroidism Renal/ Medical History: Denies: Chronic Kidney Disease, Nephrolithiasis Malignancy Medical History: Reports: None GI Medical History: Denies: Cirrhosis, Crohn's Disease, Hepatitis, Ulcerative Colitis Musculoskeltal Medical History: Denies: Arthritis, Fibromyalgia, Gout Skin Medical History: Denies: Eczema, Psoriasis Psychiatric Medical History: Reports: Substance Abuse, Tobacco Dependency Denies: Alcohol Dependency Traumatic Medical History: Reports: None Hematology: Denies: Anemia, Bleeding Tendencies Infectious Medical History: Reports: None Past Surgical History Past Surgical History: Reports: None Social History Information Source: Patient Lives with: Spouse/Significant other Smoking Status: Current Every Day Smoker Frequency of Alcohol Use: None Hx Recreational Drug Use: Yes - Remote past Drugs: Cocaine - Use in remote past Hx Prescription Drug Abuse: No - Advance Directive Resuscitation Status: Full Code Surrogate healthcare decision maker:: Meliza Longo Family History Family History: CAD, DM, Hypertension, Other - Renal failure. denies: Malignancy Parental Family History Reviewed: Yes Children Family History Reviewed: No Sibling(s) Family History Reviewed.: Yes Medication/Allergy Home Medications: Blood Sugar Diagnostic [Accu-Chek Clari Plus] 1 strip ACHS PRN #1 pkg 10/13/16 Blood-Glucose Meter [Accu-Chek Clari Plus] 1 kit ACHS PRN #1 kit 10/13/16 Insulin Aspart [Novolog Flexpen] 0 unit SUBCUT .SLD SCALE #1 pen 10/13/16 Insulin Glargine,Hum.rec.anlog [Lantus Solostar] 15 unit SQ QPM #15 ml 10/13/16 Lisinopril/Hydrochlorothiazide [Lisinopril-Hctz 20-12.5 mg Tab] 1 each PO DAILY 10/13/16 Metformin HCl 500 mg PO BID #30 tablet 10/13/16 Novolog Flex Pen Beaver 1 packet SQ ASDIR PRN #1 bottle 10/13/16 Solostar Pen Beaver 1 pkg SQ ASDIR #1 bottle 10/13/16 Naproxen [Naprosyn 250 Nmg Tablet] 1 tab PO BID #14 tablet 03/17/17 Oxycodone HCl/Acetaminophen [Percocet 5-325 mg Tablet] 1 tab PO ASDIR PRN #15 tablet 03/17/17 Lidocaine [Lidoderm 5% (700 mg) Transdermal Patch] 1 patch TP DAILY #10 adh..patch 05/06/18 Lisinopril/Hydrochlorothiazide [Lisinopril-Hctz 20-12.5 mg Tab] 1 each PO DAILY #30 tablet 05/06/18 Methocarbamol [Robaxin 500 mg Tablet] 500 mg PO Q4H PRN #15 tablet 05/06/18 Naproxen [Naprosyn 250 mg Tablet] 500 mg PO Q12H PRN #14 tablet 05/06/18 Doxycycline Hyclate 100 mg PO BID #14 capsule 07/04/18 Allergies/Adverse Reactions: amoxicillin Allergy (Verified 07/04/18 15:32) Review of Systems Constitutional: PRESENT: as per HPI, headache(s). ABSENT: chills, fever(s) Eyes: ABSENT: visual disturbances, other - Eye pain Ears: ABSENT: hearing changes, other - Ear pain Nose, Mouth, and Throat: PRESENT: as per HPI, headache(s). ABSENT: mouth pain, sore throat Cardiovascular: PRESENT: as per HPI, chest pain. ABSENT: dyspnea on exertion, edema, orthropnea, palpitations Respiratory: PRESENT: as per HPI, cough, dyspnea Gastrointestinal: PRESENT: as per HPI, nausea. ABSENT: abdominal pain, constipation, diarrhea, vomiting Genitourinary: ABSENT: dysuria, hematuria Musculoskeletal: ABSENT: back pain, joint swelling, muscle weakness Integumentary: ABSENT: diaphoresis, pruritus, rash Neurological: ABSENT: confusion, convulsions, focal weakness, memory loss, syncope Psychiatric: ABSENT: anxiety, depression Endocrine: ABSENT: cold intolerance, heat intolerance Hematologic/Lymphatic: ABSENT: easy bleeding, easy bruising Physical Exam Vital Signs: Temp Pulse Resp BP Pulse Ox 97.7 F 84 14 165/102 H 97 04/13/19 02:55 04/13/19 03:50 04/13/19 04:01 04/13/19 04:01 04/13/19 04:07 Intake & Output 04/11/19 04/12/19 04/13/19 23:59 23:59 23:59 Weight 126.5 kg General appearance: PRESENT: no acute distress, cooperative, obese Head exam: ABSENT: atraumatic, normocephalic Eye exam: PRESENT: conjunctiva pink. ABSENT: conjunctival injection, scleral icterus Ear exam: PRESENT: normal external ear exam. ABSENT: bleeding, drainage Mouth exam: PRESENT: dry mucosa, neck supple Neck exam: ABSENT: JVD, thyromegaly, tracheal deviation Respiratory exam: PRESENT: clear to auscultation chepe, symmetrical, unlabored Cardiovascular exam: PRESENT: RRR. ABSENT: clicks, gallop, rubs Pulses: PRESENT: normal radial pulses, normal dorsalis pedis pul GI/Abdominal exam: PRESENT: normal bowel sounds, soft Rectal exam: PRESENT: deferred Extremities exam: ABSENT: joint swelling, pedal edema, tenderness Musculoskeletal exam: PRESENT: full ROM, normal inspection Neurological exam: PRESENT: alert, oriented to person, oriented to place, oriented to time, oriented to situation, CN II-XII grossly intact. ABSENT: motor sensory deficit Psychiatric exam: PRESENT: appropriate affect, normal mood Skin exam: PRESENT: dry, intact, warm. ABSENT: jaundice, rash, urticaria Results Laboratory Results: 04/13/19 04:02 04/13/19 04:02 04/13/19 04/13/19 04:02 04:02 WBC 8.3 RBC 4.96 Hgb 14.8 Hct 42.0 MCV 85 MCH 29.8 MCHC 35.2 RDW 13.6 Plt Count 151 Seg Neutrophils % 59.8 Lymphocytes % 28.9 Monocytes % 8.8 Eosinophils % 1.8 Basophils % 0.7 Absolute Neutrophils 5.0 Absolute Lymphocytes 2.4 Absolute Monocytes 0.7 Absolute Eosinophils 0.1 Absolute Basophils 0.1 Sodium 140.4 Potassium 3.9 Chloride 108 H Carbon Dioxide 23 Anion Gap 9 BUN 20 Creatinine 0.85 Est GFR ( Amer) > 60 Est GFR (Non-Af Amer) > 60 Glucose 108 Calcium 9.4 Total Bilirubin 0.5 AST 23 ALT 23 Alkaline Phosphatase 77 Total Protein 7.8 Albumin 4.6 04/13/19 04:02 Troponin I < 0.012 EKG Comments: I have personally reviewed the EKG with the following findings: Normal sinus rhythm at 84 bpm, borderline left ventricular hypertrophy, single premature ventricular contraction, minimal reciprocal changes noted in V5 V6 and aVF. Impressions: Chest X-Ray 04/13/19 03:03 IMPRESSION: Negative chest copyright 2010 [employer] All Rights Reserved Status: Image reviewed by me - I personally reviewed the patient's chest x-ray with the following findings: Chest x-ray reveals no acute cardiopulmonary pathologic process. Mild diaphragm depression and hyperlucency/hyperexpansion of the lung horne is consistent with early COPD. Assessment and Plan - Diagnosis (1) Chest pain Qualifiers: Chest pain type: unspecified Qualified Code(s): R07.9 - Chest pain, unspecified Is this a current diagnosis for this admission?: Yes Plan: Patient will be admitted for serial EKG and cardiac enzyme evaluations. He will undergo a pharmacologic cardiac stress test with [employer] imaging. A daily CBC, metabolic profile and magnesium level will be obtained during the patient's course. Patient will use nitroglycerine SL (2) HTN (hypertension) Qualifiers: Hypertension type: essential hypertension Qualified Code(s): I10 - Essential (primary) hypertension Is this a current diagnosis for this admission?: Yes Plan: Patient's blood pressure be monitored closely throughout his hospital course. He will be continued on his current antihypertensive therapy during his hospital course unless changes are required for testing or control purposes. A lipid profile and a thyroid profile will be obtained as part of the ongoing assessment of patient's hypertension. (3) Diabetes mellitus type 2 in obese Is this a current diagnosis for this admission?: Yes Plan: Patient be continued on his current diet therapy only regiment. Hemoglobin A1c will be obtained to assess current therapy. (4) Tobacco use disorder, severe, dependence Is this a current diagnosis for this admission?: Yes Plan: Smoking cessation is advised and counseled briefly. A nicotine replacement patch is available for the patient's use. - Time Time Spent with patient: 25-34 minutes Smoking Cessation Education: 3 to 10 minutes Medications reviewed and adjusted accordingly: Yes Anticipated discharge: Home - Inpatient Certification Based on my medical assessment, after consideration of the patient's comorbidities, presenting symptoms, or acuity I expect that the services needed warrant INPATIENT care.: No I certify that my determination is in accordance with my understanding of Medicare's requirements for reasonable and necessary INPATIENT services [42 CFR 412.3e].: No Medical Necessity: Need Close Monitoring Due to Risk of Patient Decompensation, Need For Continuous Telemetry Monitoring, Need for Pain Control, Risk of Complic ation if Not Cared For in Hospital
[2019-04-13] MEDS: HEPARIN SOD (PORCINE) 5,000 UNIT/ML 1 ML SYRINGE SUBCUT SCH ×3 (10:31→22:19)
[2019-04-13] MEDS: DOCUSATE SODIUM 100 MG CAPSULE PO SCH ×2 (10:43→17:02)
[2019-04-13 13:57] LABS: CREATINE KINASE MB 1.13 ng/mL (<4.55)
[2019-04-13 14:01] LABS: TROPONIN I < 0.012 ng/mL
[2019-04-13 19:25] LABS: CREATINE KINASE MB 1.19 ng/mL (<4.55)
[2019-04-13 19:30] LABS: TROPONIN I < 0.012 ng/mL
--- NOTE | 2019-04-14 00:30 | EKG REPORT ---
SEVERITY:- ABNORMAL ECG - SINUS RHYTHM VENTRICULAR PREMATURE COMPLEX PROBABLE LEFT ATRIAL ABNORMALITY CONSIDER ANTERIOR INFARCT VS LVH PROLONGED QT INTERVAL : Confirmed by: Brandan Morgan 14-Apr-2019 00:29:30
[2019-04-14] MEDS: HYDRALAZINE HCL INJ/PF 20 MG/1 ML SDV IV PRN ×3 (05:50→19:54)
[2019-04-14] MEDS: HEPARIN SOD (PORCINE) 5,000 UNIT/ML 1 ML SYRINGE SUBCUT SCH ×3 (05:50→21:54)
[2019-04-14 07:26] LABS: ALANINE AMINOTRANSFERASE 25 U/L (21-72); ALBUMIN 4.4 g/dL (3.5-5.0); ALKALINE PHOSPHATASE 86 U/L (38-126); ANION GAP 10 (5-19); ASPARTATE AMINO TRANSFERASE 20 U/L (17-59); BILIRUBIN,DIRECT 0.2 mg/dL (0.0-0.4); BILIRUBIN,TOTAL 0.5 mg/dL (0.2-1.3); BLOOD UREA NITROGEN 17 mg/dL (7-20); CALCIUM 9.3 mg/dL (8.4-10.2); CARBON DIOXIDE 26 mmol/L (22-30); CHLORIDE 105 mmol/L (98-107); GLUCOSE 99 mg/dL (75-110); POTASSIUM 4.2 mmol/L (3.6-5.0); SODIUM 141.2 mmol/L (137-145); TOTAL PROTEIN 7.3 g/dL (6.3-8.2); TRIGLYCERIDES 385 mg/dL (<150)
[2019-04-14 07:37] LABS: DIRECT LDL 143 mg/dL (<100)
[2019-04-14 07:42] LABS: FREE T3 3.88 pg/mL (2.77-5.27); FREE T4 (FREE THYROXINE) 0.86 ng/dL (0.78-2.19)
[2019-04-14 07:56] LABS: THYROID STIMULATING HORMONE 1.03 uIU/mL (0.47-4.68)
[2019-04-14 08:21] LABS: HEMATOCRIT 42.2 % (37.9-51.0); MEAN CORPUSCULAR HEMOGLOBIN 29.5 pg (27.0-33.4); MEAN CORPUSCULAR HGB CONC 35.4 g/dL (32.0-36.0); MEAN CORPUSCULAR VOLUME 83 fl (80-97); PLATELET COUNT 127 10^3/uL (150-450); RED BLOOD COUNT 5.07 10^6/uL (4.35-5.55); RED CELL DISTRIBUTION WIDTH 13.9 % (11.5-14.0); WHITE BLOOD COUNT 8.5 10^3/uL (4.0-10.5)
[2019-04-14] MEDS: DOCUSATE SODIUM 100 MG CAPSULE PO SCH ×2 (09:31→17:20)
[2019-04-14] MEDS ORDERED: REGADENOSON INJ 0.4 MG/5 ML DISP.SYRIN IV ONE (10:33)
[2019-04-14] MEDS: LISINOPRIL 10 MG TABLET PO SCH ×2 (13:39→15:54)
[2019-04-14] MEDS: ASPIRIN 81 MG TABLET, CHEWABLE PO SCH ×2 (13:39→15:54)
[2019-04-14] MEDS ORDERED: PROMETHAZINE HCL INJ 25 MG/1 ML VIAL ONE (13:49)
[2019-04-14] MEDS ORDERED: PROMETHAZINE HCL INJ 25 MG/1 ML VIAL IV ONE (14:15)
--- NOTE | 2019-04-14 14:54 | EKG REPORT ---
SEVERITY:- BORDERLINE ECG - SINUS RHYTHM VENTRICULAR PREMATURE COMPLEX BORDERLINE T ABNORMALITIES, LATERAL LEADS BORDERLINE PROLONGED QT INTERVAL : Confirmed by: Brandan Morgan 14-Apr-2019 14:53:07
--- NOTE | 2019-04-14 15:33 | PDOC PROGRESS REPORT ---
Subjective Progress Note for:: 04/14/19 Subjective:: ROMMEL RODRIGUEZ JR is a 44 year old male who presents to the emergency room with a 2-day history of chest pain. He admits progressively worsening intermittent episodes of chest pain for the last 2 days. The chest pain episodes prior to the episode which brought him to the hospital had lasted only for a few minutes and been of mild to moderate intensity with rapid spontaneous resolution. He describes the pain, which started abruptly and woke him from sleep at approximately 2 AM and subsequently caused him to come to the hospital, as a constant, severe, crushing pressure in the substernal and left parasternal chest, radiating straight through to his back and lasting for more than an hour before finally resolving after treatment in the emergency room. He admits that his chest pain has accompanied by moderate dyspnea, a severe headache, a severe cough and posttussive nausea. He admits prior similar episodes on a couple of occasions in the remote past. He denies identification of any aggravating or ameliorating factors for his chest pain. In the emergency room his EKG showed no acute changes consistent with myocardial ischemia or injury and initial cardiac enzymes were in the normal range. Patient was subsequently admitted to observation status in the hospital for further evaluation and treatment. 04/14/2019. No acute events overnight, patient is status post nuclear stress test, complaining of nausea and vomiting, denies any recurrence of chest pain, denies any fever, chills, abdominal pain, diarrhea or constipation. Blood pressure still not optimized. Pending stress test results. Reason For Visit: CHEST PAIN Physical Exam Vital Signs: Temp Pulse Resp BP Pulse Ox 97.8 F 104 H 15 156/77 H 96 04/14/19 12:58 04/14/19 14:00 04/14/19 13:06 04/14/19 12:58 04/14/19 13:06 Intake & Output 04/13/19 04/14/19 04/15/19 06:59 06:59 06:59 Intake Total 580 240 Balance 580 240 Weight 126.5 kg 122 kg General appearance: PRESENT: no acute distress, morbidly obese, well-developed, well-nourished Head exam: PRESENT: atraumatic, normocephalic Respiratory exam: PRESENT: clear to auscultation chepe. ABSENT: rales, rhonchi, wheezes Cardiovascular exam: PRESENT: RRR. ABSENT: diastolic murmur, rubs, systolic murmur GI/Abdominal exam: PRESENT: normal bowel sounds, soft. ABSENT: distended, guarding, mass, organolmegaly, rebound, tenderness Neurological exam: PRESENT: alert, awake, oriented to person, oriented to place, oriented to time, oriented to situation, CN II-XII grossly intact. ABSENT: motor sensory deficit Results Laboratory Results: 04/14/19 06:01 04/14/19 06:01 04/14/19 04/14/19 04/14/19 06:01 06:01 06:01 WBC 8.5 RBC 5.07 Hgb 15.0 Hct 42.2 MCV 83 MCH 29.5 MCHC 35.4 RDW 13.9 Plt Count 127 L Sodium 141.2 Potassium 4.2 Chloride 105 Carbon Dioxide 26 Anion Gap 10 BUN 17 Creatinine 0.80 Est GFR ( Amer) > 60 Est GFR (Non-Af Amer) > 60 Glucose 99 Calcium 9.3 Magnesium 2.1 Total Bilirubin 0.5 AST 20 ALT 25 Alkaline Phosphatase 86 Total Protein 7.3 Albumin 4.4 Triglycerides 385 H Cholesterol 252.80 H LDL Cholesterol Direct 143 H VLDL Cholesterol 77.0 H HDL Cholesterol 25 L TSH 1.03 Free T4 0.86 Free T3 pg/mL 3.88 04/13/19 04/13/19 04/13/19 04:02 07:00 07:00 Creatine Kinase 68 CK-MB (CK-2) Troponin I < 0.012 0.015 04/13/19 04/13/19 04/13/19 07:00 13:00 13:00 Creatine Kinase 82 CK-MB (CK-2) 1.13 1.13 Troponin I < 0.012 04/13/19 04/13/19 18:42 18:42 Creatine Kinase 91 CK-MB (CK-2) 1.19 Troponin I < 0.012 Impressions: Chest X-Ray 04/13/19 03:03 IMPRESSION: Negative chest copyright 2011 [employer]- All Rights Reserved Assessment and Plan - Diagnosis (1) Chest pain Qualifiers: Chest pain type: unspecified Qualified Code(s): R07.9 - Chest pain, unsp ecified Is this a current diagnosis for this admission?: Yes Plan: Troponin 0.012, 0.015, 0.012 respectively. EKG sinus rhythm, PVCs, borderline T wave abnormalities. As per patient he was told in 2009 that he had a mini heart attack when he was hospitalized at [place] for chest pain was supposed to take cholesterol medications and aspirin. He has not followed up with cardiology, has not had a stress test, and does not take his medications. Status post cardiac stress test, results pending. Continue antiplatelets, statins, RODRIGO, beta blockers. (2) Hypertensive urgency Is this a current diagnosis for this admission?: Yes Plan: Due to noncompliance. SBP on admission 218 Improving not optimized. SBP [id number]. Continue lisinopril 20 mg p.o. daily, carvedilol 12.5 mg p.o. twice daily, hydralazine IV PRN. Outpatient PCP follow-up. Adjust meds as needed. (3) Diabetes mellitus type 2 in obese Is this a current diagnosis for this admission?: Yes Plan: Diet controlled. Does not take any medication. A1c 5.2. Continue Accu-Chek, sliding insulin, adjust dosage as needed. Outpatient PCP follow-up. (4) HTN (hypertension) Qualifiers: Hypertension type: essential hypertension Qualified Code(s): I10 - Essential (primary) hypertension Is this a current diagnosis for this admission?: Yes Plan: As per #2. (5) Tobacco use disorder, severe, dependence Is this a current diagnosis for this admission?: Yes Plan: Smoking cessation advised. Nicotine replacement patch provided. (6) Obesity Is this a current diagnosis for this admission?: Yes Plan: Thyroid function test WNL. Diet and lifestyle modification advised. (7) Hyperlipemia Is this a current diagnosis for this admission?: Yes Plan: ASCVD score 68.3% High-dose statins. Diet and lifestyle modification. Monitor LFT. Outpatient PCP follow-up for LFT evaluation.
[2019-04-14] MEDS ORDERED: CARVEDILOL 6.25 MG TABLET ONE (15:51)
[2019-04-14] MEDS ORDERED: CARVEDILOL 12.5 MG TABLET PO SCH (16:00)
--- NOTE | 2019-04-14 19:30 | DRAGON STRESS TEST REPORT ---
Intravenous Lexiscan Cardiolite stress test using single photon emmision computerized tomography. Date of procedure: 04/14/2019. Ordering Provider: Dr. Velasquez Macario. Patient's status: In Patient. Indication: Chest pain. Coronary risk factors: Age, diabetes mellitus, hypertension, and tobacco abuse disorder. Resting EKG: Sinus Rhythm. LVH with strain pattern. Stress EKG: No changes of ischemia. The patient had no chest pain or discomfort, and there were no arrhythmias seen. Reason for termination: Protocol. Conclusions: Normal EKG and hemodynamic response to IV Lexiscan. Nuclear data: At rest the patient was given 15.84 millicuries of technetium 99m sestamibi injected intravenously. As per protocol rest non gated SPECT images were obtained. Subsequently the patient was given intravenous Lexiscan at a dose of 0.4 mg in 5 mL intravenously, followed by flush with normal saline. Subsequently the stress dose of 45.5 millicuries of technetium 99m sestamibi was injected intravenously. As per protocol stress gated images were obtained. Nuclear interpretation: Review of images showed that there was a perfusion defect involving the basal inferior samaniego in both the rest and stress images. This area of the basal inferior wall and diminished motion contraction and thickening consistent with prior myocardial infarction. The rest of the segments of the myocardium had normal perfusion at rest, and normal perfusion post stress with IV Lexiscan. The rest of the segments of the myocardium had normal motion, contraction, and thickening by gated study. T. I D. ratio was normal at 1.02. There is no transient ischemic dilatation of the left ventricle. Computer read rest, and stress left ventricular ejection fraction were 42 %, and 39 %, respectively. Visually both the stress and rest ejection fractions were normal, and greater than 55%. Conclusion: 1. There is no scintigraphic evidence of Lexiscan induced myocardial ischemia. 2. There is scintigraphic evidence of myocardial infarction/scar involving the basal inferior wall.. Recommendations: 1. Aggressive treatment of presumed coronary artery disease in view of the evidence of myocardial infarction on above stress testing. 2. Check echo for LV ejection fraction correlation. 3. Aggressive risk factor modification, and treating the underlying co- morbidities. 4. Close outpatient cardiology follow-up. MONICA
[2019-04-14] MEDS ORDERED: ATORVASTATIN CALCIUM 40 MG TABLET PO SCH (22:00)
[2019-04-15] MEDS: HEPARIN SOD (PORCINE) 5,000 UNIT/ML 1 ML SYRINGE SUBCUT SCH (05:21)
[2019-04-15] MEDS ORDERED: LISINOPRIL 10 MG TABLET PO ONE (08:30)
[2019-04-15] MEDS ORDERED: CARVEDILOL 12.5 MG TABLET PO SCH (08:45)
[2019-04-15] MEDS: ASPIRIN 81 MG TABLET, CHEWABLE PO SCH (09:14)
[2019-04-15] MEDS: DOCUSATE SODIUM 100 MG CAPSULE PO SCH (09:15)
[2019-04-15] MEDS: LISINOPRIL 10 MG TABLET PO SCH (09:21)
[2019-04-15 11:27] VITALS: BP 158/84
== END 2019-04-15 12:16 | disposition home or self-care (01) ==
LOC: ER 02:54 → EH 05:52 → 5 09:14
PROVIDERS: ADMIT Emergency Medicine; ATTEND Emergency Medicine
DX: R07.9 Chest pain, unspecified (principal); I49.3 Ventricular premature depolarization; R94.31 Abnormal electrocardiogram [ECG] [EKG]; I16.0 Hypertensive urgency; E11.9 Type 2 diabetes mellitus without complications; E66.9 Obesity, unspecified; F17.210 Nicotine dependence, cigarettes, uncomplicated; E78.5 Hyperlipidemia, unspecified; I25.2 Old myocardial infarction; R11.0 Nausea; Z82.49 Family history of ischemic heart disease and other diseases of the circulatory system
CPT/HCPCS: 93005 ×2; 99285; 36415 ×2; 84439; 82553; 82962 ×3; 82550; 83735; 84443; 85025; 85027; 80053 ×2; 84484; 84481; 83036; 80061; 93017; 71045; 78452; 93010 ×2; G0378 ×4; A9500; J2785; J1644; J0360; J2550; J3490; J2405; Q9969

== ENCOUNTER → 2019-08-20 | Outpatient (CLI) | payer OTHER ==
--- NOTE | 2019-08-20 15:56 | RADIOLOGY REPORT (SQ) ---
EXAM DESCRIPTION: KNEE LEFT 4 VIEWS COMPLETED DATE/TIME: 08/20/2019 3:29 pm REASON FOR STUDY: LEFT KNEE PAIN M25.569 PAIN IN UNSPECIFIED KNEE COMPARISON: None. NUMBER OF VIEWS: Four views. TECHNIQUE: AP, lateral, and both oblique radiographic images acquired of the left knee. LIMITATIONS: None. FINDINGS: MINERALIZATION: Normal. BONES: No acute fracture or dislocation. No worrisome bone lesions. No significant osteophytes. JOINT: No effusion. No chondrocalcinosis. OTHER: No other significant finding. IMPRESSION: NEGATIVE STUDY OF THE LEFT KNEE. NO EXPLANATION FOR PAIN. TECHNICAL DOCUMENTATION: JOB ID: [id number] [employer]- All Rights Reserved Reading location - IP/workstation name: [email or web address]
== END ==
LOC: OD 15:00
DX: M25.562 Pain in left knee (principal)